=== PATIENT | male | born 1985 | race Caucasian/White ===

== ENCOUNTER 2016-09-28 15:04 | Emergency (ER) | payer MEDICAID ==
--- NOTE | 2016-09-28 15:13 | ED Physician Documentation ---
PD HPI UPPER EXT INJURY - Stated complaint Stated Complaint: RT HAND PX - Chief complaint Chief Complaint: Ext Problem - History obtained from History obtained from: Patient PD PAST MEDICAL HISTORY - Past Medical History Cardiovascular: None Respiratory: None Neuro: None Endocrine/Autoimmune: None Psych: None, ADD/ADHD - Past Surgical History Past Surgical History: Yes Ortho: Other - Present Medications Home Medications: Ambulatory Orders Medication Instructions Recorded Confirmed Naproxen [Naprosyn] 500 mg PO BID PRN 7 Days 09/28/12 10/02/12 Valacyclovir HCl [Valtrex] 1,000 mg PO DAILY 09/28/12 10/02/12 Ibuprofen [Motrin] 600 mg PO Q6H PRN #30 tab 10/02/12 HYDROcod/ACETAM 5/325 [Vicodin 1 - 2 ea PO Q6H PRN #15 tablet 07/21/13 5/325] - Allergies Allergies/Adverse Reactions: Allergies Allergy/AdvReac Type Severity Reaction Status Date / Time bee stings AdvReac Unknown Respiratory Uncoded 01/16/13 15:11 - Social History Does the pt smoke?: Yes Smoking Status: Current every day smoker Does the pt drink ETOH?: Yes Does the pt have substance abuse?: Yes - Immunizations Immunizations are current?: No Immunizations: TDAP >10years/unknown - POLST Patient has POLST: No Results - Vitals Vitals: Vital Signs - 24 hr 09/28/16 15:10 Temperature 36.4 C L Heart Rate 83 Respiratory 16 Rate Blood Pressure 114/69 O2 Saturation 98 Oxygen O2 Source Room air
[2016-09-28 15:15] VITALS: BP 114/69
--- NOTE | 2016-09-28 15:27 | ED Physician Documentation ---
PD HPI UPPER EXT INJURY - Stated complaint Stated Complaint: RT HAND PX - Chief complaint Chief Complaint: Ext Problem - History obtained from History obtained from: Patient - History of Present Illness Location: Right, Forearm, Wrist Type of injury: Fall Where injury occurred: Home Timing - onset: Last night Timing - duration: Days (1) Timing - details: Gradual onset Pain level max: 6 Pain level now: 6 Improved by: Rest, Ice, Immobilization Worsened by: Moving, Palpating Associated symptoms: No: Weakness, Numbness, Tingling, Swelling, Discolored Contributing factors: No: Anticoagulated, Prior ortho surgery Similar symptoms before: Has not had sx before Recently seen: Not recently seen Review of Systems Constitutional: denies: Fever, Chills Throat: denies: Sore throat Respiratory: denies: Cough GI: denies: Nausea, Vomiting, Diarrhea Skin: denies: Rash Musculoskeletal: denies: Neck pain, Back pain Neurologic: denies: Headache PD PAST MEDICAL HISTORY - Past Medical History Past Medical History: Yes Cardiovascular: None Respiratory: None Neuro: None Endocrine/Autoimmune: None Psych: None, ADD/ADHD - Past Surgical History Past Surgical History: Yes Ortho: Other - Present Medications Home Medications: Ambulatory Orders Medication Instructions Recorded Confirmed Ibuprofen [Motrin] 800 mg PO Q8H PRN #30 tablet 09/28/16 - Allergies Allergies/Adverse Reactions: Allergies Allergy/AdvReac Type Severity Reaction Status Date / Time bee stings AdvReac Unknown Respiratory Uncoded 01/16/13 15:11 - Social History Does the pt smoke?: Yes Smoking Status: Current every day smoker Does the pt drink ETOH?: Yes Does the pt have substance abuse?: Yes Substance Use and Type: Marijuana - Immunizations Immunizations are current?: No Immunizations: TDAP >10years/unknown - POLST Patient has POLST: No PD ED PE NORMAL - Vitals Vital signs reviewed: Yes - General General: Alert and oriented X 3, No acute distress - Derm Derm: Warm and dry - Extremities Extremities: Other (TTP ulnar aspect R wrist. NVI. no snuffbox tenderness. TTP midshaft ulna. No deformity. O/w normal exam R UE.) - Neuro Neuro: Alert and oriented X 3 - Psych Psych: Normal mood, Normal affect Results - Vitals Vitals: Vital Signs - 24 hr 09/28/16 15:10 Temperature 36.4 C L Heart Rate 83 Respiratory 16 Rate Blood Pressure 114/69 O2 Saturation 98 Oxygen O2 Source Room air - Rads (name of study) R wrist xray Radiology: Prelim report reviewed, EMP read contemporaneously, See rad report ( normal) R forearm xray Radiology: Prelim report reviewed, EMP read contemporaneously, See rad report ( normal) PD MEDICAL DECISION MAKING - ED course Complexity details: reviewed results, re-evaluated patient, considered differential, d/w patient ED course: Patient is a 31-year-old male who presents to the emergency department with right wrist pain after a fall last night. No acute findings on x-ray. Placed in a Velcro wrist splint for comfort. Neurovascularly intact. Patient counseled regarding signs and symptoms for which I believe and urgent re-evaluation would be necessary. Patient with good understanding of and agreement to plan and is comfortable going home at this time This document was made in part using voice recognition software. While efforts are made to proofread this document, sound alike and grammatical errors may occur. Departure - Departure Disposition: 01 Home, Self Care Clinical Impression: Right wrist sprain Qualifiers: Encounter type: initial encounter Qualified Code(s): S63.501A - Unspecified sprain of right wrist, initial encounter Condition: Good Instructions: ED Sprain Wrist Follow-Up: Lizz Ferrara ARNP [Primary Care Provider] - Within 1 week Prescriptions: Ibuprofen [Motrin] 800 mg PO Q8H PRN #30 tablet PRN Reason: PAIN &/OR FEVER Comments: Wear the splint as needed for wrist pain. Follow up with your doctor for repeat evaluation. Discharge Date/Time: 09/28/16 16:28
--- NOTE | 2016-09-28 15:56 | XRAY Preliminary Report ---
Exam: XR Forearm RT IMPRESSION: Normal right forearm radiography. [facility] SITE ID: [id number]
--- NOTE | 2016-09-28 15:59 | XRAY Report ---
EXAM: RIGHT FOREARM RADIOGRAPHY EXAM DATE: 09/28/2016 03:48 PM. CLINICAL HISTORY: Fall yesterday, midshaft ulna tenderness. COMPARISON: None. TECHNIQUE: 2 views. FINDINGS: Bones: Normal. No fractures or bone lesions. Joints: Normal. No effusions or subluxations in the visualized wrist or elbow joints. Soft Tissues: Normal. No soft tissue swelling. IMPRESSION: Normal right forearm radiography. [facility] Referring Provider Line: [phone] SITE ID: [id number]
[2016-09-28] MEDS ORDERED: IBUPROFEN 800 MG TABLET PO ONE (16:17)
[2016-09-28] MEDS ORDERED: IBUPROFEN 800 MG TABLET PO STA (16:17)
--- NOTE | 2016-09-28 16:19 | XRAY Preliminary Report ---
Exam: XR Wrist 4 View RT IMPRESSION: Normal right wrist radiography. [facility] SITE ID: [id number]
--- NOTE | 2016-09-28 16:22 | XRAY Report ---
EXAM: RIGHT WRIST RADIOGRAPHY EXAM DATE: 09/28/2016 03:48 PM. CLINICAL HISTORY: Fall R wrist pain, distal ulna. COMPARISON: None. TECHNIQUE: 4 views. FINDINGS: Bones: Normal. No fractures or bone lesions. Joints: Normal. No subluxations. Soft Tissues: Normal. No soft tissue swelling. IMPRESSION: Normal right wrist radiography. [facility] Referring Provider Line: [phone] SITE ID: [id number]
== END 2016-09-28 16:28 | disposition home or self-care (01) ==
LOC: ED 15:04
DX: S63.501A Unspecified sprain of right wrist, initial encounter (principal); W01.0XXA Fall on same level from slipping, tripping and stumbling without subsequent striking against object, initial encounter; Y92.019 Unspecified place in single-family (private) house as the place of occurrence of the external cause; F17.200 Nicotine dependence, unspecified, uncomplicated
CPT/HCPCS: 73090; 73110; 99283; A9270

== ENCOUNTER 2018-04-02 10:30 | Outpatient (CLI) | payer MEDICAID ==
[2018-04-02 14:13] LABS: BASOPHILS % (AUTO) 0.9 %; EOSINOPHILS % (AUTO) 0.6 %; HGB - HEMOGLOBIN 14.5 g/dL (14.0-18.0); LYMPHOCYTES # (AUTO) 1.2 10^3/uL (1.5-3.5); LYMPHOCYTES % (AUTO) 31.2 %; MEAN CORPUSCULAR HEMOGLOBIN 33.2 pg (27.0-31.0); MEAN CORPUSCULAR HGB CONC 34.6 g/dL (32.0-36.0); MEAN CORPUSCULAR VOLUME 95.8 fL (80.0-94.0); MEAN PLATELET VOLUME 9.6 fL (7.4-11.4); MONOCYTES # (AUTO) 0.5 10^3/uL (0.0-1.0); MONOCYTES % (AUTO) 13.2 %; NEUTROPHILS % (AUTO) 54.1 %; PLT - PLATELET COUNT 194 10^3/uL (130-450); RED BLOOD COUNT 4.38 10^6/uL (4.70-6.10); RED CELL DISTRIBUTION WIDTH 12.9 % (12.0-15.0); WHITE BLOOD COUNT 3.7 x10^3/uL (4.8-10.8)
[2018-04-02 14:32] LABS: ALBUMIN 4.5 g/dL (3.2-5.5); ALBUMIN/GLOBULIN RATIO 1.8 (1.0-2.2); ALKALINE PHOSPHATASE 46 IU/L (42-121); ALT ALANINE AMINOTRANSFERASE 37 IU/L (10-60); AST ASPARTATE AMINOTRANSFERASE 23 IU/L (10-42); BILIRUBIN,TOTAL 0.4 mg/dL (0.2-1.0); BUN - BLOOD UREA NITROGEN 16 mg/dL (6-20); CALCIUM 9.2 mg/dL (8.5-10.3); CARBON DIOXIDE - CO2 27 mmol/L (21-32); CHLORIDE 106 mmol/L (101-111); CHOL/HDL RATIO 6.1 (<5.0); CHOLESTEROL 219 mg/dL; CREATININE 0.5 mg/dL (0.6-1.2); GFR - MDRD 190 (>89); GLUCOSE 99 mg/dL (70-100); HDL CHOLESTEROL 36 mg/dL; LDL CHOLESTEROL,CALCULATED 171 mg/dL; LDL/HDL RATIO 4.8 (<3.6); SODIUM 139 mmol/L (135-145); VLDL CHOLESTEROL 12 mg/dL
== END 2018-04-02 23:59 | disposition home or self-care (01) ==
LOC: LAB.N 10:30
PROVIDERS: ATTEND Nurse Practitioner Gerontology
DX: Z13.9 Encounter for screening, unspecified (principal)
CPT/HCPCS: 36415; 80053; 80061; 81599; 83721; 84443; 85025

== ENCOUNTER 2018-06-03 15:50 | Emergency (ER) | payer MEDICAID ==
[2018-06-03 16:06] VITALS: BP 122/73
--- NOTE | 2018-06-03 17:02 | ED Physician Documentation ---
PD HPI SKIN - Stated complaint Stated Complaint: LFT ARM PX - Chief complaint Chief Complaint: Laceration - History obtained from History obtained from: Patient - History of Present Illness Timing - onset: How many days ago (4) Timing - duration: Days (4) Timing - details: Gradual onset, Still present Location: LUE Quality / character: Painful, Discolored, Raised, Swelling Associated symptoms: No: Fever, Myalgias, Joint pain Similar symptoms before: Has not had sx before Recently seen: Not recently seen - Additional information Additional information: Previously well 33-year-old male has developed a swelling under his left arm in the axilla. The swelling is firm is quite tender it is red he has been using a warm compress. Despite this he has progression of symptoms and he does not feel any fluctuance. Review of Systems Constitutional: denies: Fever Eyes: denies: Decreased vision Ears: denies: Ear pain Nose: denies: Congestion Throat: denies: Sore throat Cardiac: denies: Chest pain / pressure Respiratory: denies: Dyspnea, Cough GI: denies: Nausea, Vomiting Skin: reports: Other (TENDER MASS LEFT AXILLA) Musculoskeletal: reports: Extremity pain. denies: Neck pain, Back pain Neurologic: denies: Generalized weakness, Focal weakness, Numbness PD PAST MEDICAL HISTORY - Past Medical History Cardiovascular: None Respiratory: None Endocrine/Autoimmune: None Psych: None, ADD/ADHD - Past Surgical History Past Surgical History: Yes Ortho: Other - Present Medications Home Medications: Ambulatory Orders Medication Instructions Recorded Confirmed Ibuprofen [Motrin] 800 mg PO Q8H PRN #30 tablet 09/28/16 Hydrocodone/Acetaminophen 1 - 2 each PO Q6H PRN #14 tablet 06/03/18 [Hydrocodon-Acetaminophen 5-325] Sulfamethoxazole/Trimethoprim 1 each PO BID #14 tablet 06/03/18 [Sulfamethoxazole-Tmp Ds Tablet] - Allergies Allergies/Adverse Reactions: Allergies Allergy/AdvReac Type Severity Reaction Status Date / Time bee stings AdvReac Unknown Respiratory Uncoded 06/03/18 16:06 - Social History Does the pt smoke?: Yes Smoking Status: Current every day smoker Does the pt drink ETOH?: Yes Does the pt have substance abuse?: Yes - Immunizations Immunizations are current?: No Immunizations: TDAP >10years/unknown - POLST Patient has POLST: No PD ED PE NORMAL - Vitals Vital signs reviewed: Yes (normal ) - General General: Alert and oriented X 3, No acute distress, Well developed/nourished - HEENT HEENT: Atraumatic, PERRL, EOMI - Respiratory Respiratory: No respiratory distress - Derm Derm: Normal color, Warm and dry, No rash - Extremities Extremities: No deformity, No edema, Other (in the left axilla is a 1cm round mass that is firm and tender with erythema. There is no fluctuance and no surrounding erythema. 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 We will put this patient on some sulfamethoxazole trimethoprim and warm compresses. I have discussed with the patient the ripening phenomena and expectations over the next 2 days. Departure - Departure Disposition: 01 Home, Self Care Clinical Impression: Abscess Condition: Stable Instructions: ED Staph Infec Abx Tx Only Follow-Up: [facility] [Provider Group] Prescriptions: Hydrocodone/Acetaminophen [Hydrocodon-Acetaminophen 5-325] 1 - 2 each PO Q6H PRN #14 tablet PRN Reason: pain Sulfamethoxazole/Trimethoprim [Sulfamethoxazole-Tmp Ds Tablet] 1 each PO BID #14 tablet
== END 2018-06-03 17:12 | disposition home or self-care (01) ==
LOC: ED 15:50
DX: L02.412 Cutaneous abscess of left axilla (principal); F17.200 Nicotine dependence, unspecified, uncomplicated
CPT/HCPCS: 99283

== ENCOUNTER 2018-06-06 09:10 | Emergency (ER) | payer MEDICAID ==
[2018-06-06] MEDS ORDERED: LIDOCAINE 2%-EPI 1:100000 20 ML MDV SUBQ STA (10:26)
--- NOTE | 2018-06-06 10:32 | ED Physician Documentation ---
History of Present Illness - Stated complaint Stated Complaint: ABSCESS UNDER ARM - Chief complaint Chief Complaint: Wound - History obtained from History obtained from: Patient - History of Present Illness Timing: How many days ago (several) Pain level max: 6 Pain level now: 5 - Additonal information Additional information: 33-year-old male with swelling to the left axilla for the past several days. Started on antibiotics 2 days ago, states continuing to grow and worsen in size. Did spontaneously drain yesterday. No fevers. Nothing makes it better. Worse with palpation and movement Review of Systems Constitutional: denies: Fever, Chills Respiratory: denies: Cough GI: denies: Vomiting, Diarrhea Skin: denies: Rash Musculoskeletal: denies: Neck pain, Back pain PD PAST MEDICAL HISTORY - Past Medical History Cardiovascular: None Respiratory: None Endocrine/Autoimmune: None Psych: None, ADD/ADHD - Past Surgical History Past Surgical History: Yes Ortho: Other - Present Medications Home Medications: Ambulatory Orders Medication Instructions Recorded Confirmed Ibuprofen [Motrin] 800 mg PO Q8H PRN #30 tablet 09/28/16 Hydrocodone/Acetaminophen 1 - 2 each PO Q6H PRN #14 tablet 06/03/18 [Hydrocodon-Acetaminophen 5-325] Sulfamethoxazole/Trimethoprim 1 each PO BID #14 tablet 06/03/18 [Sulfamethoxazole-Tmp Ds Tablet] - Allergies Allergies/Adverse Reactions: Allergies Allergy/AdvReac Type Severity Reaction Status Date / Time bee stings AdvReac Unknown Respiratory Uncoded 06/03/18 16:06 - Social History Does the pt smoke?: Yes Smoking Status: Current every day smoker Does the pt drink ETOH?: Yes Does the pt have substance abuse?: Yes - Immunizations Immunizations are current?: No Immunizations: TDAP >10years/unknown - POLST Patient has POLST: No PD ED PE NORMAL - Vitals Vital signs reviewed: Yes - General General: Alert and oriented X 3, No acute distress, Well developed/nourished - HEENT HEENT: PERRL, Moist mucous membranes - Neck Neck: Supple, no meningeal sign - Cardiac Cardiac: RRR, Strong equal pulses - Respiratory Respiratory: No respiratory distress, Clear bilaterally - Abdomen Abdomen: Soft, Non tender, Non distended - Derm Derm: Warm and dry - Extremities Extremities: Other (L axilla - 2x3cm, erythematous, indurated area. ) - Neuro Neuro: Alert and oriented X 3 - Psych Psych: Normal mood, Normal affect Results - Vitals Vitals: Vital Signs - 24 hr 06/06/18 06/06/18 09:29 11:07 Temperature 36.9 C Heart Rate 71 57 L Respiratory 16 16 Rate Blood Pressure 114/67 115/89 H O2 Saturation 99 100 Oxygen O2 Source Room air Procedures - Abscess I&D (location) Left axilla Preparation: Alcohol, Lidocaine 2 %, With epi Incision: Incised with scalpel, Purulent drainage, Irrigated, Packed, Culture obtained Other: Pt tolerated well, Dressing applied, Antibiotic prescribed PD MEDICAL DECISION MAKING - ED course Complexity details: considered differential, d/w patient, d/w family ED course: 33-year-old male with a left axillary abscess. Incised and drained. Tolerated well. Has antibiotics from 2 days ago, will continue those. Patient counseled regarding signs and symptoms for which I believe and urgent re-evaluation would be necessary. Patient with good understanding of and agreement to plan and is comfortable going home at this time This document was made in part using voice recognition software. While efforts are made to proofread this document, sound alike and grammatical errors may occur. Departure - Departure Disposition: 01 Home, Self Care Clinical Impression: Abscess Condition: Good Instructions: ED Abscess IandD Follow-Up: your,doctor tomorrow as scheduled. [Other] Comments: Continue the antibiotics you are previously prescribed. Return if you worsen. Follow-up with your doctor tomorrow as scheduled. Discharge Date/Time: 06/06/18 11:08
[2018-06-06 11:07] VITALS: BP 115/89
== END 2018-06-06 11:08 | disposition home or self-care (01) ==
LOC: ED 09:10
DX: L02.412 Cutaneous abscess of left axilla (principal); F17.200 Nicotine dependence, unspecified, uncomplicated
CPT/HCPCS: 10060; 87070; 87181; 87205; 99282; 99283

== ENCOUNTER 2018-11-07 14:25 | Emergency (ER) | payer BC, MEDICAID ==
[2018-11-07 14:32] VITALS: BP 117/68
[2018-11-07 15:07] LABS: BILIRUBIN,URINE NEGATIVE (NEGATIVE); GLUCOSE, URINE (UA) 250 mg/dL (NEGATIVE); KETONES,URINE (UA) TRACE mg/dL (NEGATIVE); LEUKOCYTE ESTERASE, URINE TRACE (NEGATIVE); NITRITE,URINE POSITIVE (NEGATIVE); OCCULT BLOOD,URINE NEGATIVE (NEGATIVE)
[2018-11-07 15:21] LABS: CLARITY,URINE CLEAR (CLEAR); RBC,URINE None Seen /HPF (0-5)
[2018-11-07 15:22] LABS: BACTERIA,URINE Rare /HPF (None Seen); MUCUS,URINE Few Strands; SQUAMOUS EPITHELIAL CELL,UR RARE Squamous (<= Few)
--- NOTE | 2018-11-07 15:59 | ED Physician Documentation ---
History of Present Illness - Stated complaint Stated Complaint: MALE - Chief complaint Chief Complaint: General - History obtained from History obtained from: Patient - History of Present Illness Timing: Today (He noted discolored urine today without discharge, abdominal pain, flank pain, rectal pain, dysuria, or frequency.) Review of Systems Constitutional: denies: Fever, Chills GI: reports: Constipation (Chronic). denies: Abdominal Pain, Nausea, Vomiting : denies: Dysuria PD PAST MEDICAL HISTORY - Past Medical History Cardiovascular: None Respiratory: None Endocrine/Autoimmune: None Psych: None, ADD/ADHD - Past Surgical History Past Surgical History: Yes Ortho: Other - Present Medications Home Medications: Ambulatory Orders Medication Instructions Recorded Confirmed Ibuprofen [Motrin] 800 mg PO Q8H PRN #30 tablet 09/28/16 Hydrocodone/Acetaminophen 1 - 2 each PO Q6H PRN #14 tablet 06/03/18 [Hydrocodon-Acetaminophen 5-325] Sulfamethoxazole/Trimethoprim 1 each PO BID #14 tablet 06/03/18 [Sulfamethoxazole-Tmp Ds Tablet] Ciprofloxacin HCl [Cipro] 500 mg PO BID #20 tablet 11/07/18 - Allergies Allergies/Adverse Reactions: Allergies Allergy/AdvReac Type Severity Reaction Status Date / Time bee stings AdvReac Unknown Respiratory Uncoded 11/07/18 14:32 - Social History Does the pt smoke?: Yes Smoking Status: Current every day smoker Does the pt drink ETOH?: Yes Does the pt have substance abuse?: Yes - Immunizations Immunizations are current?: No Immunizations: TDAP >10years/unknown - POLST Patient has POLST: No PD ED PE NORMAL - Vitals Vital signs reviewed: Yes - General General: Alert and oriented X 3, No acute distress - Abdomen Abdomen: Soft, Non tender - Neuro Neuro: Alert and oriented X 3, Normal speech Results - Vitals Vitals: Vital Signs - 24 hr 11/07/18 14:29 Temperature 36 C L Heart Rate 70 Respiratory 16 Rate Blood Pressure 117/68 O2 Saturation 98 Oxygen O2 Source Room air - Labs Labs: Laboratory Tests 11/07/18 14:51 Urine Color ORANGE Urine Clarity CLEAR Urine pH 5.0 Ur Specific [place] 1.025 Urine Protein MEDICINE TECHNOLOGIST Urine Glucose (UA) 250 H Urine Ketones TRACE Urine Occult Blood NEGATIVE Urine Nitrite POSITIVE H Urine Bilirubin NEGATIVE Urine Urobilinogen MEDICINE TECHNOLOGIST Ur Leukocyte Esterase TRACE H Urine RBC None Seen Urine WBC 0-3 Ur Squamous Epith Cells RARE Squamous Urine Bacteria Rare Urine Mucus Few Strands Ur Microscopic Review INDICATED Urine Culture Comments INDICATED PD MEDICAL DECISION MAKING - ED course ED course: 33-year-old gentleman with evidence of UTI, STD testing will be sent and he is started on Cipro for complicated UTI in a male. No evidence of prostatitis clinically. Departure - Departure Disposition: 01 Home, Self Care Clinical Impression: UTI (urinary tract infection) Qualifiers: Urinary tract infection type: site unspecified Hematuria presence: without hematuria Qualified Code(s): N39.0 - Urinary tract infection, site not specified Condition: Good Record reviewed to determine appropriate education?: Yes Instructions: ED UTI Cystitis Male Prescriptions: Ciprofloxacin HCl [Cipro] 500 mg PO BID #20 tablet Comments: We will culture your urine, the results should be done in 48-72 hours. If an antibiotic change is necessary we will call you. Return if worse in the meantime, especially if you develop increasing flank pain, fevers, or cannot keep down the medication.
[2018-11-07 21:06] LABS: TRICHOMONAS VAGINALIS DNA NEGATIVE (NEGATIVE)
== END 2018-11-07 16:06 | disposition home or self-care (01) ==
LOC: ED 14:25
DX: N39.0 Urinary tract infection, site not specified (principal); F17.200 Nicotine dependence, unspecified, uncomplicated; M19.071 Primary osteoarthritis, right ankle and foot; M25.871 Other specified joint disorders, right ankle and foot; M24.071 Loose body in right ankle; M77.31 Calcaneal spur, right foot
CPT/HCPCS: 81001; 81003; 87086; 87491; 87591; 87661; 99283

== ENCOUNTER 2018-11-07 16:08 | Outpatient (CLI) | payer BC, MEDICAID ==
--- NOTE | 2018-11-08 10:30 | XRAY Report ---
Reason: ANKLE JLINT FOOT PAIN, RIGHT Procedure Date: 11/07/2018 Accession Number: [id number] / [id number] Procedure: XR - Ankle 3 View RT CPT Code: FULL RESULT: EXAM: RIGHT ANKLE RADIOGRAPHY EXAM DATE: 11/07/2018 04:36 PM. CLINICAL HISTORY: Ankle pain. Foot pain. COMPARISON: ANKLE 2 VIEW RT 01/08/2015 2:36 PM. TECHNIQUE: 3 views. FINDINGS: Bones: No acute fracture or bony lesion. Well-corticated calcifications are seen by the medial malleolus. Changes again seen from internal fixation of the distal right fibular. Syndesmotic screw has been removed in the interval. Plantar calcaneal spur. Joints: Ankle mortise well-maintained. Joint space narrowing and articular sclerosis of the tibiotalar joint. New well-corticated calcification is seen cephalad to the distal right talus measuring 10 mm. Soft Tissues: Mild soft tissue edema. IMPRESSION: 1. Interval removal of syndesmotic screw. Right fibular internal fixation, stable. 2. 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 3. Anterior right tibiotalar joint 10 mm intra-articular loose body. [facility]
--- NOTE | 2018-11-08 10:33 | XRAY Report ---
Reason: ANKLE FOOT JOINT PAIN RIGHT Procedure Date: 11/07/2018 Accession Number: [id number] / [id number] Procedure: XR - Foot 3 View RT CPT Code: FULL RESULT: EXAM: RIGHT FOOT RADIOGRAPHY EXAM DATE: 11/07/2018 04:36 PM. CLINICAL HISTORY: Ankle. Foot pain on right. COMPARISON: ANKLE 2 VIEW RT 01/08/2015 2:36 PM. TECHNIQUE: 3 views. FINDINGS: Bones: Interval removal of syndesmotic screw. No acute fracture. Well-corticated calcifications by the medial malleolus as well as a 1 cm well-corticated calcification new along the cephalad aspect of the distal right talus. Degenerative spurring. Changes are again seen from internal fixation of the distal right fibula. Joints: Degenerative changes of the right first MTP joint and right midfoot. Worsening degenerative changes of the right tibiotalar joint. No dislocation. Soft Tissues: Normal. No soft tissue swelling. IMPRESSION: 1. Interval removal of syndesmotic screw. 2. Degenerative changes of the right foot and right ankle. 3. New well-corticated calcifications along the right ankle and right talus which may be posttraumatic/degenerative in origin with the calcification by the right talus possibly intra-articular loose body. [facility]
== END 2018-11-07 16:09 | disposition home or self-care (01) ==
LOC: DI 16:08
PROVIDERS: ATTEND Nurse Practitioner Gerontology
DX: M19.071 Primary osteoarthritis, right ankle and foot (principal); M25.871 Other specified joint disorders, right ankle and foot; M24.071 Loose body in right ankle; M77.31 Calcaneal spur, right foot

== ENCOUNTER 2018-11-07 16:12 | Outpatient (CLI) | payer BC, MEDICAID | END 2018-11-07 16:13 | disposition home or self-care (01) | LOC: DI 16:12 | PROVIDERS: ATTEND Nurse Practitioner Gerontology | DX: Z53.9 Procedure and treatment not carried out, unspecified reason (principal) ==

== ENCOUNTER 2019-10-13 14:51 | Emergency (ER) | payer BC, MEDICAID ==
[2019-10-13 14:58] VITALS: BP 128/79
[2019-10-13] MEDS ORDERED: oxyCODONE 5 MG TABLET PO STA (15:05)
--- NOTE | 2019-10-13 15:07 | ED Physician Documentation ---
History of Present Illness - Stated complaint Stated Complaint: LT SHOULDER PX - Chief complaint Chief Complaint: Ext Problem - History obtained from History obtained from: Patient - Additonal information Additional information: For the last few days without specific injury he has had pain around the left shoulder and shoulder blade. It hurts to move it. He is never had anything like this before. He denies shortness of breath, chest pain, fevers. Review of Systems Constitutional: reports: Reviewed and negative Ears: reports: Reviewed and negative Nose: reports: Reviewed and negative PD PAST MEDICAL HISTORY - Past Medical History Past Medical History: Yes Cardiovascular: None Respiratory: None Endocrine/Autoimmune: None Psych: None, ADD/ADHD - Past Surgical History Past Surgical History: Yes Ortho: Other - Present Medications Home Medications: Ambulatory Orders Medication Instructions Recorded Confirmed Ibuprofen [Motrin] 800 mg PO Q8H PRN #30 tablet 09/28/16 Hydrocodone/Acetaminophen 1 - 2 each PO Q6H PRN #14 tablet 06/03/18 [Hydrocodon-Acetaminophen 5-325] Sulfamethoxazole/Trimethoprim 1 each PO BID #14 tablet 06/03/18 [Sulfamethoxazole-Tmp Ds Tablet] Ciprofloxacin HCl [Cipro] 500 mg PO BID #20 tablet 11/07/18 Ibuprofen [Motrin] 800 mg PO Q8H PRN #30 tablet 10/13/19 Oxycodone HCl/Acetaminophen 1 - 2 each PO Q6H PRN #14 tablet 10/13/19 [Percocet 5-325 mg Tablet] - Allergies Allergies/Adverse Reactions: Allergies Allergy/AdvReac Type Severity Reaction Status Date / Time bee stings AdvReac Unknown Respiratory Uncoded 11/07/18 14:32 - Social History Does the pt smoke?: Yes Smoking Status: Current every day smoker Does the pt drink ETOH?: Yes Does the pt have substance abuse?: Yes - Immunizations Immunizations are current?: No Immunizations: TDAP >10years/unknown - POLST Patient has POLST: No PD ED PE NORMAL - Vitals Vital signs reviewed: Yes - General General: Alert and oriented X 3, No acute distress - HEENT HEENT: PERRL, EOMI - Neck Neck: Supple, no meningeal sign, No bony TTP - Cardiac Cardiac: Strong equal pulses (radial B) - Extremities Extremities: Other (The left shoulder itself is nontender, he has painless internal and external rotation but very positive supraspinatus testing. He can only abduct to about 90 degrees and then stops due to pain. The scapula on the left is nontender. 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 X-ray is negative. Departure - Departure Disposition: 01 Home, Self Care Clinical Impression: Left shoulder pain Qualifiers: Chronicity: acute Qualified Code(s): M25.512 - Pain in left shoulder Condition: Good Record reviewed to determine appropriate education?: Yes Instructions: Exercise Shoulder Wall Walk, ED Tendinitis Rotator Cuff Prescriptions: Ibuprofen [Motrin] 800 mg PO Q8H PRN #30 tablet PRN Reason: PAIN &/OR FEVER Oxycodone HCl/Acetaminophen [Percocet 5-325 mg Tablet] 1 - 2 each PO Q6H PRN #14 tablet PRN Reason: pain Comments: Your x-rays are normal, the examination is suggestive of potentially a rotator cuff issue. Follow-up with the orthopedic surgery office, calling tomorrow for an appointment. Return for new or worsening symptoms. You can wear the sling as needed for comfort but she should come out of it at least a couple of times a day to do the exercises shown in this packet. Do not drink or drive while taking narcotic pain medication. Note that many narcotic pain relievers also contain Tylenol/acetaminophen. Please ensure that your total dose of acetaminophen from all sources does not exceed 3 g (3000 mg) per day. You may get constipated while on this medication. Take a stool softener such as Colace twice a day while you are on it. Also add an yezw-awx-iefxqwl laxative such as senna or MiraLAX on any day that you do not have a bowel movement. If you received a narcotic pain medication or sedative while in the emergency department, do not drive for the next 24 hours. Discharge Date/Time: 10/13/19 15:46
--- NOTE | 2019-10-13 15:39 | XRAY Report ---
PROCEDURE: Shoulder 3 View LT INDICATIONS: shoulder pain TECHNIQUE: 3 views of the shoulder were acquired. COMPARISON: None. FINDINGS: Bones: No fractures or dislocations. No suspicious bony lesions. Visualized ribs appear intact. Soft tissues: No suspicious soft tissue calcifications. IMPRESSION: Normal left shoulder plain films. If it would be helpful for clinical management decision making, please consider a dedicated shoulder MRI for further evaluation (assuming that there is no contraindication). If there is strong clinical concern for labral pathology, then please consider performing this according to the arthrogram protoc ol. Reviewed by: Wilson Mc MD on 10/13/2019 2:37 PM AKRATNA Approved by: Wilson Mc MD on 10/13/2019 2:37 PM AKDT Station ID: [id number]
== END 2019-10-13 15:46 | disposition home or self-care (01) ==
LOC: ED 14:51
DX: M25.512 Pain in left shoulder (principal); F17.200 Nicotine dependence, unspecified, uncomplicated
CPT/HCPCS: 73030; 99283; 99284; A9270

== ENCOUNTER 2020-02-27 12:31 | Outpatient (CLI) | payer BC, MEDICAID ==
--- NOTE | 2020-02-27 14:49 | XRAY Report ---
PROCEDURE: Ankle 3 View RT INDICATIONS: RIGHT ANKLE PAIN TECHNIQUE: 3 views of the ankle were acquired. COMPARISON: X-ray right ankle, 3 views, 11/07/2018. FINDINGS: Bones: No acute fractures or dislocations. Old fracture with internal fixation of the distal fibula. Ossicles distal to the medial malleolus are likely sequelae of old injury. There is xyphgkxo-yx-olyt re tibiotalar joint degeneration. Ankle mortise is normally aligned. No suspicious bony lesions. Os sicles anterior to tibiotalar joint is likely intra-articular bodies, which appear increased since . Soft tissues: No tibiotalar joint effusion. Achilles tendon appears normal. IMPRESSION: 1. No acute fracture or dislocation. 2. Old distal fibular fracture with internal fixation. 3. Old medial malleolar injury with multiple ossicles. 4. Ossicles anterior to the tibiotalar joint are likely intra-articular bodies. 5. Fncbowkk-sm-roeoan tibiotalar joint degeneration. Reviewed by: Odilia Camacho MD on 02/27/2020 2:48 PM PST Approved by: Odilia Camacho MD on 02/27/2020 2:48 PM PST Station ID: [id number]
== END 2020-02-27 23:59 | disposition home or self-care (01) ==
LOC: DI.N 12:31
PROVIDERS: ATTEND Physician Assistant
DX: M19.071 Primary osteoarthritis, right ankle and foot (principal)

== ENCOUNTER 2020-12-12 17:25 | Outpatient (CLI) | payer MEDICAID | END 2020-12-12 17:26 | disposition critical access hospital (66) | LOC: EMS 17:25 | DX: T63.441A Toxic effect of venom of bees, accidental (unintentional), initial encounter (principal); R22.0 Localized swelling, mass and lump, head; L50.9 Urticaria, unspecified | CPT/HCPCS: A0425; A0427; A0999 ==

== ENCOUNTER 2020-12-12 17:44 | Emergency (ER) | payer MEDICAID ==
[2020-12-12] MEDS ORDERED: DEXAMETHASONE 10 MG/ML VIAL IVP STA (17:51)
[2020-12-12] MEDS ORDERED: KETOROLAC 30 MG/ML VIAL IVP STA (17:51)
--- NOTE | 2020-12-12 17:53 | ED Physician Documentation ---
History of Present Illness - Stated complaint Stated Complaint: ALLERGIC REACTION/BEE STING - History obtained from History obtained from: Patient - Additonal information Additional information: 35-year-old gentleman without history of anaphylaxis was stung behind the left ear by a bee at 5 PM and quickly developed body wide burning and a sensation of throat swelling. Shortly thereafter took oral Benadryl and EMS gave him 0.3 mg of IM epinephrine with improvement of his throat swelling but he still feels like he is burning all over. No shortness of breath at this juncture. Review of Systems Ten Systems: 10 systems reviewed and negative Constitutional: denies: Fever, Chills, Myalgias Cardiac: denies: Chest pain / pressure, Palpitations Respiratory: denies: Dyspnea, Cough PD PAST MEDICAL HISTORY - Past Medical History Cardiovascular: None Respiratory: None Endocrine/Autoimmune: None Psych: None, ADD/ADHD - Past Surgical History Past Surgical History: Yes Ortho: Other - Present Medications Home Medications: Ambulatory Orders Medication Instructions Recorded Confirmed Ibuprofen [Motrin] 800 mg PO Q8H PRN #30 tablet 09/28/16 10/27/19 Hydrocodone/Acetaminophen 1 - 2 each PO Q6H PRN #14 tablet 06/03/18 10/27/19 [Hydrocodon-Acetaminophen 5-325] Lisdexamfetamine Dimesylate 50 mg PO DAILY 10/27/19 10/27/19 [Vyvanse] Valacyclovir HCl [Valtrex] 10/27/19 Gabapentin 300 mg PO TID #20 capsule 10/28/19 HYDROcod/ACETAM 5/325 [[place] 5/325] 1 - 2 ea PO Q6H PRN #15 tablet 10/28/19 EPINEPHrine [Epinephrine] 0.3 mg IJ ONCE PRN #2 syr 12/12/20 predniSONE [Deltasone] 60 mg PO DAILY 5 Days #15 tablet 12/12/20 - Allergies Allergies/Adverse Reactions: Allergies Allergy/AdvReac Type Severity Reaction Status Date / Time bee stings AdvReac Unknown Respiratory Uncoded 12/12/20 17:56 - Social History Does the pt smoke?: Yes Smoking Status: Current every day smoker Does the pt drink ETOH?: Yes Does the pt have substance abuse?: Yes - Immunizations Immunizations are current?: No Immunizations: TDAP >10years/unknown - POLST Patient has POLST: No PD ED PE NORMAL - Vitals Vital signs reviewed: Yes - General General: Alert and oriented X 3, No acute distress - HEENT HEENT: PERRL, EOMI, Pharynx benign - Neck Neck: Supple, no meningeal sign, No bony TTP - Cardiac Cardiac: RRR, No murmur - Respiratory Respiratory: No respiratory distress, Clear bilaterally - Abdomen Abdomen: Normal bowel sounds, Soft, Non tender - Back Back: No CVA TTP, No spinal TTP - Derm Derm: Normal color, Warm and dry - Extremities Extremities: No edema, No calf tenderness / cord - Neuro Neuro: Alert and oriented X 3, Normal speech Results - Vitals Vitals: Vital Signs - 24 hr 12/12/20 12/12/20 17:50 17:56 Temperature 36.3 C L Heart Rate 85 83 Respiratory 20 18 Rate Blood Pressure 117/79 126/78 O2 Saturation 100 99 Oxygen O2 Source Room air PD MEDICAL DECISION MAKING - ED course ED course: 35-year-old gentleman with bee sting anaphylaxis. Observed several hours without recurrence or return of his symptoms. Departure - Departure Disposition: 01 Home, Self Care Clinical Impression: Bee sting-induced anaphylaxis Qualifiers: Encounter type: initial encounter Injury intent: accidental or unintentional Qualified Code(s): T63.441A - Toxic effect of venom of bees, accidental (unintentional), initial encounter Condition: Good Record reviewed to determine appropriate education?: Yes Instructions: EpiPen Auto Injector Dc, ED Bite Sting Insect Gen Allergic React Prescriptions: predniSONE [Deltasone] 60 mg PO DAILY 5 Days #15 tablet EPINEPHrine [Epinephrine] 0.3 mg IJ ONCE PRN #2 syr PRN Reason: Allergy Symptoms Comments: Call your doctor to arrange a follow-up appointment, make the next available appointment. In the interim, return anytime if worse or if new symptoms de velop.
[2020-12-12 20:03] VITALS: BP 115/76
== END 2020-12-12 20:03 | disposition home or self-care (01) ==
LOC: EDUNIT# → ED 17:44
DX: T63.441A Toxic effect of venom of bees, accidental (unintentional), initial encounter (principal); F17.200 Nicotine dependence, unspecified, uncomplicated
CPT/HCPCS: 96374; 99283

== ENCOUNTER 2021-01-14 15:25 | Outpatient (CLI) | payer MEDICAID ==
--- NOTE | 2021-01-15 11:13 | XRAY Report ---
PROCEDURE: Ankle 3 View RT INDICATIONS: CHRONIC RIGHT ANKLE PAIN / ARTHRITIS TECHNIQUE: 3 views of the ankle were acquired. COMPARISON: 02/27/2020 FINDINGS: Bones: There is chronic lateral fibular compression plate and transverse fixation screws which appea r intact without evidence of loosening. There are no acute fractures. There is severe tibiotalar join t space loss. Minimal spur formation. Prominent dystrophic cortical osteophytes are present distal to the medial malleolus, posterior and anterior to the tibiotalar joint. A tiny plantar calcaneal spur is present, chronic. Soft tissues: Small, chronic tibiotalar joint effusion. Achilles tendon appears normal. IMPRESSION: 1. 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 2. Intact fixation hardware fixing a remote distal fibular fracture. 3. Dystrophic corticated ossicles surrounding tibiotalar joint. 4. Small chronic joint effusion. Reviewed by: Imani Venegas MD on 01/15/2021 11:11 AM PDT Approved by: Imani Venegas MD on 01/15/2021 11:11 AM PDT Station ID: [id number]
== END 2021-01-14 23:59 ==
LOC: DI.N 15:25
PROVIDERS: ATTEND Physician Assistant Medical
DX: M12.571 Traumatic arthropathy, right ankle and foot (principal); M25.471 Effusion, right ankle

== ENCOUNTER 2021-10-03 21:55 | Emergency (ER) | payer MEDICAID ==
--- NOTE | 2021-10-03 21:55 | ED Physician Documentation ---
History of Present Illness - Stated complaint Stated Complaint: SOA - History obtained from History obtained from: Patient - History of Present Illness Timing: Enter time (14:30), Today Improved by: rest (low back pain) Worsened by: movement (low back pain) - Additonal information Additional information: BIBA, c/o generalized headache, low back pain, dyspnea, numbness in all four extremities. EMS reports they noted hyperventilation and carpo-pedal spasm and gave 4mg IV versed (as well as 700 cc IV normal saline) en route with improvement in both patient's appearance (appears more comfortable) as well as patient report (indicated he felt much improved). Patient indicates to me he has never had symptoms like this before. He denies fever, cough, sore throat (EMS says patient had reported cough, nausea, and feeling like he had a fever to them, but patient denies these symptoms, specifically, on my HPI). Patient says his symptoms started today at approximately 2:30 PM without specific inciting event Review of Systems Cardiac: reports: Reviewed and negative Respiratory: reports: Dyspnea, Cough. denies: Hemoptysis, Wheezing GI: denies: Abdominal Pain, Nausea (patient denies on my HPI although EMS reports patient did include nausea on his symptom description to them), Vomiting, Constipation, Diarrhea : denies: Dysuria, Frequency Musculoskeletal: reports: Back pain Neurologic: reports: Numbness (had numbness in all four extremities when he was also noted to be tachypneic by EMS; both the tachypnea and numbness resolved after 4mg IV versed given by EMS), Headache. denies: Generalized weakness, Focal weakness, Confused, Head injury PD PAST MEDICAL HISTORY - Past Medical History Past Medical History: Yes Psych: ADD/ADHD - Present Medications Home Medications: Ambulatory Orders Medication Instructions Recorded Confirmed Ibuprofen [Motrin] 800 mg PO Q8H PRN #30 tablet 09/28/16 10/27/19 Hydrocodone/Acetaminophen 1 - 2 each PO Q6H PRN #14 tablet 06/03/18 10/27/19 [Hydrocodon-Acetaminophen 5-325] Lisdexamfetamine Dimesylate 50 mg PO DAILY 10/27/19 10/27/19 [Vyvanse] Valacyclovir HCl [Valtrex] 10/27/19 Gabapentin 300 mg PO TID #20 capsule 10/28/19 HYDROcod/ACETAM 5/325 [[place] 5/325] 1 - 2 ea PO Q6H PRN #15 tablet 10/28/19 EPINEPHrine [Epinephrine] 0.3 mg IJ ONCE PRN #2 syr 12/12/20 predniSONE [Deltasone] 60 mg PO DAILY 5 Days #15 tablet 12/12/20 - Allergies Allergies/Adverse Reactions: Allergies Allergy/AdvReac Type Severity Reaction Status Date / Time bee stings AdvReac Unknown Respiratory Uncoded 12/12/20 17:56 PD ED PE NORMAL - Vitals Vital signs reviewed: Yes - General General: Alert and oriented X 3, No acute distress, Well developed/nourished - HEENT HEENT: Atraumatic, PERRL, Moist mucous membranes, Pharynx benign - Neck Neck: Supple, no meningeal sign - Cardiac Cardiac: RRR, No murmur - Respiratory Respiratory: No respiratory distress, Other (few rhonchi bilateral upper lung milner but good air movement without wheezing) - Abdomen Abdomen: Soft, Non tender - Back Back: No CVA TTP, No spinal TTP - Derm Derm: Normal color, Warm and dry, No rash - Neuro Neuro: Alert and oriented X 3, search marketing analyst 2-12 intact, No motor deficit, No sensory deficit, Normal speech Eye Opening: Spontaneous Motor: Obeys Commands Verbal: Oriented GCS Score: 15 Results - Vitals Vitals: Vital Signs - 24 hr 10/03/21 10/03/21 10/04/21 22:11 23:44 00:24 Temperature 37.6 C 37.6 C Heart Rate 103 H 92 68 Respiratory 12 21 18 Rate Blood Pressure 111/63 96/59 L 93/64 O2 Saturation 96 96 98 Oxygen O2 Source Room air - Labs Labs: Laboratory Tests 10/03/21 22:34 Nasal Adenovirus (PCR) NOT DETECTED Nasal B. parapertussis DNA (PCR) NOT DETECTED Nasal Coronavir 229E PCR NOT DETECTED Nasal Coronavir HKU1 PCR NOT DETECTED Nasal Coronavir NL63 PCR NOT DETECTED Nasal Coronavir OC43 PCR NOT DETECTED Nasal Enterovir/Rhinovir PCR NOT DETECTED Nasal Influenza B PCR NOT DETECTED Nasal Influenza A PCR NOT DETECTED Nasal Parainfluen 1 PCR NOT DETECTED Nasal Parainfluen 2 PCR NOT DETECTED Nasal Parainfluen 3 PCR NOT DETECTED Nasal Parainfluen 4 PCR NOT DETECTED Nasal RSV (PCR) NOT DETECTED Nasal B.pertussis DNA PCR NOT DETECTED Nasal C.pneumoniae (PCR) NOT DETECTED Chepe Human Metapneumo PCR NOT DETECTED Nasal M.pneumoniae (PCR) NOT DETECTED Nasal SARS-CoV-2 (PCR) NOT DETECTED - Rads (name of study) chest xray Radiology: Prelim report reviewed, See rad report PD MEDICAL DECISION MAKING - ED course Complexity details: reviewed results, re-evaluated patient, considered differential, d/w patient ED course: symptoms as noted in HPI , suggestive of viral syndrome (as well as tachypnea with extremity numbness and carpopedal spasm that resolved with IV versed CURTAIN FRAMER, suggestive of hyperventilation syndrome). His respiratory PCR panel is negative for viruses tested including COVID and influenza. CXR is unremarkable. He is in NAD although tacky mucous membranes and thus given 500cc NS bolus (had received 700cc NS en route by EMS). Also given toradol IV for his headache and back pain. on reevaluation, he is again in NAD, MMM, and reports feeling better with the fluids and the toradol. Results d/w patient and I explained that I do not have a specific cause for symptoms at this time but further emergent testing is not indicated, instructed to follow up with primary care provider for reevaluation in 3-5 days if symptoms have not completely resolved, return to the ED if worse in any way Departure - Departure Disposition: 01 Home, Self Care Clinical Impression: Viral syndrome Condition: Good Instructions: ED Viral Syndrome Comments: The chest xray does not show evidence of an acute process such as pneumonia. Your viral tests (nasal swab) was negative for the viruses tested (including COVID and influenza). There are other viruses besides those that we tested and based on your symptoms, the most likely explanation for your symptoms, based on your description of symptoms, is a virus. Rest for the next two days at home and increase your fluid intake to stay hydrated. You should take your temperature if you are not feeling well, as detection of fever can be a helpful clue as to what is causing symptoms (more likely to be an infectious process), and you can take tylenol or ibuprofen if you are having fevers (although you can also take either if you are having symptoms such as headache or back pain). If your symptoms worsen you should return to the emergency department. I would expect you to feel better over the next 2-3 days if it is a viral process. Forms: Activity restrictions Discharge Date/Time: 10/04/21 00:49
--- NOTE | 2021-10-03 23:07 | XRAY Report ---
PROCEDURE: Chest 2 View X-Ray INDICATIONS: dyspnea TECHNIQUE: 2 views of the chest. COMPARISON: None. FINDINGS: Surgical changes and devices: None. Lungs and pleura: No pleural effusions or pneumothorax. Lungs are clear. Mediastinum: Mediastinal contours are normal. Heart size is normal. Bones and chest wall: No suspicious bony abnormalities. Soft tissues appear unremarkable. IMPRESSION: 1. No acute cardiopulmonary disease. Reviewed by: Joselo Joshi MD on 10/03/2021 11:06 PM PDT Approved by: Joselo Joshi MD on 10/03/2021 11:06 PM PDT Station ID: [id number]
[2021-10-03 23:30] LABS: B. PARAPERTUSSIS- RESP PCR PAN NOT DETECTED; B. PERTUSSIS- RESP PCR PANEL NOT DETECTED; C. PNEUMONIAE- RESP PCR PANEL NOT DETECTED; CORONAVIRUS 229E-RESP PCR NOT DETECTED; CORONAVIRUS HKU1-RESP PCR NOT DETECTED; CORONAVIRUS NL63-RESP PCR NOT DETECTED; CORONAVIRUS OC43-RESP PCR NOT DETECTED; HUMAN METAPNEUMOVIRUS NOT DETECTED; INFLUENZA A- RESP PCR PANEL NOT DETECTED; INFLUENZA B - RESP PCR PANEL NOT DETECTED; M. PNEUMONIAE- RESP PCR PANEL NOT DETECTED; PARAINFLUENZA VIRUS 1 NOT DETECTED; PARAINFLUENZA VIRUS 2 NOT DETECTED; PARAINFLUENZA VIRUS 3 NOT DETECTED; PARAINFLUENZA VIRUS 4 NOT DETECTED; RHINOVIRUS/ENTEROVIRUS NOT DETECTED; RSV- RESP PCR PANEL NOT DETECTED; SARS-CoV-2 -RESP PCR PANEL NOT DETECTED
[2021-10-03] MEDS ORDERED: SODIUM CHLORIDE 0.9% 500 ML IV STA (23:42)
[2021-10-03] MEDS ORDERED: KETOROLAC 30 MG/ML VIAL IVP STA (23:42)
[2021-10-04 00:25] VITALS: BP 93/64
== END 2021-10-04 00:49 | disposition home or self-care (01) ==
LOC: EDUNIT# → ED 21:55
DX: Z20.822 Contact with and (suspected) exposure to COVID-19 (principal)
CPT/HCPCS: 87633; 96374; 99282

== ENCOUNTER 2022-06-23 16:09 | Outpatient (CLI) | payer MEDICAID ==
--- NOTE | 2022-06-23 16:49 | XRAY Report ---
PROCEDURE: Ankle 3 View RT INDICATIONS: PERIPHERAL NEUOPATHY/ARTRITIS OF RIGHT ANKLE TECHNIQUE: 3 views of the ankle were acquired. COMPARISON: 01/14/2021 and 02/27/2020 FINDINGS: Bones: Post-ORIF changes are again seen in distal fibular shaft. No evidence of hardware loosening or failure. Severe tibiotalar joint osteoarthritic changes are seen. Mild to moderate osteoarthritic ch anges also seen in rest of the midfoot and hindfoot joints. No acute fracture or dislocation. Ankle m ortise is normally aligned. No suspicious bony lesions. Soft tissues: Mild ankle soft tissue swelling is seen. Achilles tendon appears normal. IMPRESSION: Post-ORIF changes in distal fibular shaft. No evidence of hardware loosening or failure. Severe tibiotalar joint osteoarthritis. Mild ankle soft tissue swelling. No gross acute fracture or dislocation. Reviewed by: Nik Wade MD on 06/23/2022 4:48 PM PDT Approved by: Nik Wade MD on 06/23/2022 4:48 PM PDT Station ID: [id number]
== END 2022-06-23 16:10 | disposition home or self-care (01) ==
LOC: DI 16:09
PROVIDERS: ATTEND Registered Nurse
DX: G62.9 Polyneuropathy, unspecified (principal); M12.571 Traumatic arthropathy, right ankle and foot; S82.201D Unspecified fracture of shaft of right tibia, subsequent encounter for closed fracture with routine healing